=== PATIENT | female | born 1985 | race Hispanic/Latino ===

== ENCOUNTER → 2021-07-13 | Outpatient (CLI) | payer MEDICARE | END | disposition home or self-care (01) | LOC: RAH 11:13 | PROVIDERS: ATTEND Family Medicine | DX: M54.50 Low back pain, unspecified (principal) | CPT/HCPCS: 72070; 72100 ==

== ENCOUNTER 2022-10-24 15:59 | Emergency (ER) | payer BC, MEDICARE ==
[~2022-10-24] VITALS: Ht 152.4 cm; Wt 111.1 kg
[2022-10-24 16:32] VITALS: BP 146/91
[2022-10-24] MEDS ORDERED: CYCL10TA16 PO (18:26)
[2022-10-24] MEDS ORDERED: KETOROLAC 30MG VIAL (30MG/ML) IM ONE (18:30)
== END 2022-10-24 19:09 | disposition home or self-care (01) ==
LOC: EDH 15:59
DX: S46.911A Strain of unspecified muscle, fascia and tendon at shoulder and upper arm level, right arm, initial encounter (principal); Z98.890 Other specified postprocedural states; X58.XXXA Exposure to other specified factors, initial encounter; Y93.89 Activity, other specified; Y92.89 Other specified places as the place of occurrence of the external cause; Y99.8 Other external cause status
CPT/HCPCS: 73030